=== PATIENT | male | born 1985 | race Caucasian/White ===

== ENCOUNTER 2016-10-12 19:45 | Emergency (ER) ==
[2016-10-12] MEDS ORDERED: IMOVAX RABIES VACCINE IM ONE (20:20)
[2016-10-12] MEDS ORDERED: AUGMENTIN PO ONE (20:20)
[2016-10-12] MEDS ORDERED: DIPHTHERIA/TETANUS ADULT IM ONE (20:20)
[2016-10-12] MEDS ORDERED: HYPERRAB S-D VIAL IM ONE (20:20)
--- NOTE | 2016-10-12 20:35 | PROVIDER DOCUMENTATION ---
HPI-Animal/Snake Bite Injury - General Chief Complaint: Animal Bite Stated Complaint: DOG BITE Time Seen by Provider: 10/12/16 20:17 Patient arrived via EMS?: No Source: patient Allergies/Adverse Reactions: Patient Allergies Allergy/AdvReac Type Severity Reaction Status Date / Time No Known Allergies Allergy Verified 10/12/16 20:08 Home Medications: Home Medication List Medication Instructions Recorded Confirmed Last Taken Type Amoxicillin/Pot Clavulanate 875 mg PO Q12HR #14 tablet 10/12/16 Unknown Rx [Augmentin] Ibuprofen [Motrin] 800 mg PO Q8H PRN PRN #20 tablet 10/12/16 Unknown Rx - History of Present Illness-Bite Injuries Nature of Presenting Problem: This pt presents today s/p dog bite. He reports that he was riding his bike outside and three stray dogs began chasing him and one bit his R lateral knee and broke the skin. He does not know anything about the dogs and they ran off. No other issues or complaints. Onset/Duration: 1-3 hours ago Timing: reports: still present Severity: mild Quality: painful Loss of Consciousness: no loss of consciousness Similar Symptoms Previously?: No Recently seen or treated by another doctor?: No - Animal Bite Bite Injury Location: reports: [facility] Animal:: reports: dog Appearance of Animal: unknown Animal's Immunization Status: unknown Observation/Capture: animal unknown/not captured Context of Attack: reports: "unprovoked" attack Severity of Bite Injury: bitten Review of Systems - Adult - REVIEW OF SYSTEMS - ADULT Constitutional: reports: no symptoms reported. denies: chills, fever Eyes: reports: no symptoms reported. denies: discharge, dry eyes Ears, Nose, Mouth & Throat: reports: no symptoms reported. denies: ear discharge, ear pain Cardiovascular: reports: no symptoms reported. denies: chest pain, edema Respiratory: reports: no symptoms reported. denies: chronic cough, cough Gastrointestinal: reports: no symptoms reported. denies: abdominal pain, hematemesis Genitourinary: reports: no symptoms reported. denies: dysuria, discharge Musculoskeletal: reports: no symptoms reported. denies: bone pain, back pain Integumentary: reports: see HPI. denies: hives, hair loss Neurological: reports: no symptoms reported. denies: ataxia, dizziness/vertigo Psychiatric: reports: no symptoms reported. denies: anxiety, anti-depressant use Endocrine: reports: no symptoms reported Hematologic/Lymphatic: reports: no symptoms reported Allergic/Immunologic: reports: no symptoms reported All Other Systems: Reviewed and Negative Past History - Adult - PAST MEDICAL HISTORY-ADULT Review of Records: reports: Old Records Reviewed, Nursing Assessment Review, Medications Reviewed, Social history reviewed & non-contributory. Major Childhood Illnesses: reports: denies history Cardiovascular: reports: denies history Respiratory: reports: denies history Gastrointestinal: reports: denies history Obstetrical/Gynecological: reports: denies history Genitourinary: reports: denies history Musculoskeletal: reports: denies history Neurological: reports: denies history Endocrine/Immune: reports: denies history Other Conditions: reports: denies history Physical Exam-General - PHYSICAL EXAM-ADULT Initial Vital Signs Reviewed: Yes - CONSTITUTIONAL General Appearance: appears well, alert, no apparent distress - EYES Eyes: PERRL/EOMI, pink conjunctivae - HEAD, EARS, NOSE, MOUTH & THROAT HENMT: normocephalic/atraumatic, moist mucous membranes, normal ENT inspection - NECK Neck: non-tender, full range of motion, supple, normal inspection - RESPIRATORY Respiratory: chest non-tender, lungs clear, normal breath sounds - CARDIOVASCULAR Cardiovascular: normal peripheral pulses, regular rate, rhythm - GASTROINTESTINAL (ABDOMEN) Abdominal Exam: normal bowel sounds, non tender, soft - MUSCULOSKELETAL Back Exam: normal inspection, no CVA tenderness, no vertebral tenderness Extremity: normal range of motion, normal gait, tenderness. negative: pulse deficit, pedal edema, swelling - SKIN Integumentary: normal turgor, laceration(s) (very superficial; no active bleeding), tenderness - NEUROLOGIC Neurologic: grossly normal, no motor/sensory deficits Progress - PLAN OF CARE/RESULTS Progress/Plan/Lab Results: Orders Category Date Time Status Amoxicillin/Pot Clavulanate [Augmentin] Med 10/12/16 20:20 Discontinued 875 mg PO NOW ONE Diphtheria/Tetanus Adult Med 10/12/16 20:20 Discontinued 0.5 ml IM .ONCE ONE Rabies Immune Globulin [Hyperrab S-D Vial] Med 10/12/16 20:20 Discontinued 1,960 unit IM .ONCE ONE Rabies Vacc, Human Diploid/Pf [Imovax Rabies Vaccine] Med 10/12/16 20:20 Discontinued 2.5 unit IM .ONCE ONE Vital Signs Temp Pulse Resp BP Pulse Ox 10/12/16 20:04 98 F 77 18 137/88 99 No Known Allergies Allergy (Verified 10/12/16 20:08) No Home Medications 10/12/16 Departure - Departure Time of Disposition Order: 20:33 DIAGNOSIS: Dog bite of extremity Disposition: HOME 01 Certified Medical Emergency: Emergent Condition: Good Additional Instructions: Take medication as prescribed. Keep area clean and dry. Follow up with your primary care provider. Return on day 3, 7, 14 and 28 for repeat vaccine injections. ED Follow Up Instructions: You have been treated by a care provider in the Emergency Department. These instructions are being provided to you so you can have an understanding of how to care for yourself upon discharge. Upon discharge from the Emergency Department, you are responsible for making arrangements for follow-up care by a physician of your choice. Take all prescribed medications as directed. Return to the Emergency Department immediately for any new or worsening symptoms. You may call the Physician Referral phone number at [phone] to obtain a list of Physicians who are taking new patients. Prescriptions: Amoxicillin/Pot Clavulanate [Augmentin] 875 mg PO Q12HR #14 tablet Ibuprofen [Motrin] 800 mg PO Q8H PRN PRN #20 tablet PRN Reason: inflammation Attestation - Physician/ [place] Attestation Patient care was provided by Advanced Practice Provider:: Yes Advanced Practice Provider:: Darrel Calvillo Advanced Practice Provider documentation review:: The Mid-level provider documentation, treatment plan and medical decision making was reviewed by the physician who agrees with all treatment and medical decision making by the P.
[2016-10-12] MEDS ORDERED: HYPERRAB ONE ×2 (20:38→21:45)
[2016-10-12] MEDS ORDERED: IMOVAX RABIES VACCINE ONE (20:38)
[2016-10-12 22:50] VITALS: BP 124/77
== END 2016-10-12 22:49 | disposition home or self-care (01) ==
LOC: P.ED 19:45
DX: S81.011A Laceration without foreign body, right knee, initial encounter (principal); W54.0XXA Bitten by dog, initial encounter; Z23 Encounter for immunization
CPT/HCPCS: 90375; 90675; 90714